=== PATIENT | male | born 1960 | race Caucasian/White ===

== ENCOUNTER → 2017-03-30 | Outpatient (CLI) | payer BC ==
--- NOTE | 2017-03-30 15:49 | RADRPT ---
PROCEDURE: Left knee radiographs. CLINICAL INDICATION: Left knee pain. TECHNIQUE: Three views. Weight bearing. Frontal, lateral, and patellar view. COMPARISON: No prior studies are available for comparison. FINDINGS: There is no fracture or dislocation. The soft tissues are normal. Articular surfaces are intact. There is no lytic or blastic lesion. There is no radiopaque foreign body. IMPRESSION: 1. Normal images of the left knee. RPTAT: QQ .Jere Suazo MD, MD Date Time Electronically viewed and signed by .Jere Suazo MD, MD on 03/30/2017 15:48 .R/
--- NOTE | 2017-04-14 09:14 | HKNOTE ---
DATE OF SERVICE: 03/30/2017 MAIN COMPLAINT: Pain in the left knee. HISTORY OF PRESENT ILLNESS: Patient is a 56-year-old male who has been working out in a gym for about a year to improve his general health. At 1 of the last sessions, there was a sudden onset of pain in the knee without any specific injury. He has not been working out since then. Patient says the pain started in the knee. He does not believe there is any swelling. No locking and no instability. He gets start-up pain after sitting for 5 minutes. He can walk as far as he needs to but he gets pain in the knee with every step. Does not use a walking aid. He is not limping. PAST ORTHOPEDIC HISTORY: Previous orthopedic operations, none. PRIOR CORTISONE INTAKE: None. ALCOHOL INTAKE: None. OTHER JOINT PROBLEMS: Carpometacarpal joint pain. BLOOD TESTS FOR ARTHRITIS: None. PRIOR INJURIES TO HIPS OR KNEES: None. 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 PAST MEDICAL HISTORY: Negative. 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 Nasal septum repair 2011. DRUG ALLERGIES: None. MEDICATIONS: Simvastatin and Protonix. FAMILY HISTORY: Noncontributory. REVIEW OF SYSTEMS: Occasional heartburn. Otherwise, entirely negative. HABITS: Patient does not smoke or drink alcoholic beverages. PHYSICAL EXAMINATION: VITAL SIGNS: Height 5 foot 11 inches, weight 235 pounds, blood pressure 120/70, temperature 99.1. GAIT: Patient's gait is normal. He walks without a walking aid. HIPS: Both hips have full range of motion without pain. LEFT KNEE: Alignment is normal. Extension full and pain free. Flexion full and pain free. Ligaments intact. 2+ effusion. Tender over the medial joint line. No scars. 2+ crepitus in the knee and patella. IMAGING: Plain x-rays of the knee obtained today at the [facility] were reviewed. There is moderate narrowing of the lateral compartment of patellofemoral joint without subchondral sclerosis or osteophyte formation. No interosseous cysts. Otherwise, entirely normal. DISCUSSION: Spontaneous onset of knee pain in a 56- year-old male. Pain with every step. Examination reveals a small effusion present. Tender over the medial joint line. Imaging shows minimal degenerative change. The suddenness of the onset of pain and swelling without injury suggests that there may be an internal derangement of the knee. ARRANGEMENT: The patient is being referred for an MRI scan of the knee and he will be called with the result. Further treatment will depend upon the findings. Dictated By: Sarabjit Perez MD /duran/cruz /Document#: [id number]
== END | disposition home or self-care (01) ==
LOC: HKI 13:38
DX: M25.562 Pain in left knee (principal)
CPT/HCPCS: 73562; G0463

== ENCOUNTER → 2017-04-04 | Outpatient (CLI) | payer BC ==
--- NOTE | 2017-04-14 11:24 | HKNOTE ---
DATE OF SERVICE: 04/04/2017 INTERVAL HISTORY: The patient comes in with an MRI scan for review. The MRI dated 03/31/[address] Александр Neri as showing "radially-oriented tear along the free edge of the posterior horn of the medial meniscus. Mild proximal patella tendonitis. 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 The knee does not lock, but at times it will not extend fully and he has to "jiggle it loose." He has instability and no swelling. PLAN: The patient is a young man who is extremely active and he has pain in his knee every day. It is difficult to determine if this meniscal tear diagnosed on the MRI is causing a significant part of his pain. The MRI does report chondromalacia of the patellofemoral compartment, a small joint effusion. In the absence of conclusive symptoms, I feel that we should bide our time before making any decisions. 1. The patient is given a prescription for Mobic 7.5 mg p.o. b.i.d., which he will try for 2 weeks. 2. He is friends with Dr. Pee Singh, who is a director of sports performance, and I have recommended that he have a second opinion with Dr. Singh and even have his surgery with Dr. Singh if he believes it is needed. 3. The patient was given a copy of his MRI scan report and the actual MRI disc and he will be seen again. It should be noted that we spent considerable time discussing operative arthroscopy, what is involved, and the postoperative course. Dictated By: Sarabjit Perez MD /duran/cachorro /Document#: [id number]
== END | disposition home or self-care (01) ==
LOC: HKI 13:52
DX: M23.222 Derangement of posterior horn of medial meniscus due to old tear or injury, left knee (principal); M76.52 Patellar tendinitis, left knee; M22.42 Chondromalacia patellae, left knee